=== PATIENT | female | born 1950 | race Caucasian/White ===

== ENCOUNTER 2018-01-06 09:45 | Emergency (ER) | payer OTHER, MEDICARE, SELFPAY ==
[2018-01-06 09:51] VITALS: BP 205/103; PULSE 73; RESP 18; TEMP 36.7; O2SAT 97; BMI 32.9
[2018-01-06 09:54] VITALS: BP 183/89; PULSE 72; RESP 18; O2SAT 97
[2018-01-06 09:56] VITALS: TEMP 36.7
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
--- NOTE | 2018-01-06 12:07 | NURSING ---
CALLING [facility] FOR TRANSFER.
--- NOTE | 2018-01-06 12:10 | NURSING ---
ER DOC TO ER DOC
[2018-01-06 12:14] VITALS: BP 138/77; PULSE 81; RESP 16; O2SAT 98
[2018-01-06] MEDS: Diphth,Pertuss(Acell),Tet Vac 0.5 ML Vial IM (12:25)
[2018-01-06 12:30] LABS: Absolute Lymphocyte Count 2.17 X10^3/ul (0.83-4.51); Absolute Neutrophil Count 11.2 X10^3/uL (2.0-7.7); Basophil# 0.02 X10^3/uL; Basophil% 0.1 % (0-1); Eosinophil# 0.04 X10^3/uL; Eosinophils% 0.3 % (0-5); Hematocrit 45.3 % (37-47); Hemoglobin 15.6 g/dl (12.0-15.0); Lymphocyte # 2.17 X10^3/ul (4.0); Lymphocyte % 15.2 % (19-41); Mean Corp Hgb Conc 34.4 g/gl (32-36); Mean Corpuscular Hgb 32.1 pg (27.0-32.0); Mean Corpuscular Volume 93.2 fL (81-99); Mean Platelet Vol. 9.1 fl (6.2-12.0); Monocyte# 0.79 X10^3/uL; Monocyte% 5.5 % (0-10); Neutrophil # 11.23 X10^3/uL (2.7-7.7); Neutrophil % 78.6 % (47-70); POSITIVE COUNT NO; POSITIVE DIFFERENTIAL NO; POSITIVE MORPHOLOGY NO; Platelet Count 277 K/mm3 (150-450); RBC Distribution Width CV 12.8 % (11.6-14.6); RBC Distribution Width SD 43.7 fl (35.1-43.9); Red Blood Count 4.86 M/mm3 (4.2-5.4); White Blood Count 14.3 K/mm3 (4.4-11.0)
[2018-01-06 12:32] LABS: Prothrombin Time (Protime)PT. 12.7 SECONDS (11.7-14.9)
[2018-01-06 12:33] LABS: Mucous, Urine 0 SEEN /hpf (<or=2+); White Blood Cells 0 SEEN /hpf (0-5)
[2018-01-06 12:38] LABS: Color, Urine Yellow (Yellow); Glucose, Dipstick Normal (Normal); Ketone-Dipstick Negative (Negative); Leukocyte Esterase-Dipstick 25 /ul (Negative); Nitrite-Dipstick Negative (Negative); Occult Blood-Urine 250 /ul (Negative); Protein-Dipstick Negative (Negative); Specific Gravity, Urine 1.005 (1.002-1.030); Urine Bilirubin Dipstick Negative (Negative); Urine Clarity Clear (Clear); Urine Urobilinogen Normal (Normal)
[2018-01-06 12:39] VITALS: BP 138/84; PULSE 80; RESP 17; TEMP 36.4; O2SAT 98
[2018-01-06 12:41] LABS: ALB/GLOB Ratio 1.1 RATIO (0.9-2.4); AST(SGOT) 28 U/L (15-37); Alanine Aminotransfer ALT/SGPT 38 U/L (13-56); Albumin, Serum 4.5 g/dL (3.2-5.0); Alkaline Phosphatase 92 U/L (45-117); Anion Gap 6 (5-15); BUN 15 mg/dL (7-18); Calcium,Total 9.5 mg/dL (8.5-10.1); Chloride 106 mmol/L (98-107); Creatinine, Serum 0.84 mg/dL (0.55-1.02); EST Glomerular Filtration Rate 72 mL/min (>60); Est Glom Filt Rate - Afr Amer 87 mL/min (>60); Glucose 111 mg/dL (74-106); Lipase 173 U/L (73-393); Potassium 4.1 mmol/L (3.5-5.1); Protein, Total 8.5 g/dL (6.4-8.2); Sodium Level 141 mmol/L (136-145)
[2018-01-06 12:45] LABS: Bacteria RARE /hpf (None Seen); Red Blood Cells-Urine 10-25 SEEN /hpf (0-5); Squamous Epithelial Cells - UA 0-5 SEEN /hpf (5-10)
[2018-01-06 13:09] VITALS: BP 139/77; PULSE 81; RESP 16; O2SAT 97
== END 2018-01-06 14:19 | disposition short-term general hospital (02) ==
PROVIDERS: Emergency Provider Emergency Medicine
DX: S06.350A Traumatic hemorrhage of left cerebrum without loss of consciousness, initial encounter (principal); S50.02XA Contusion of left elbow, initial encounter; S00.211A Abrasion of right eyelid and periocular area, initial encounter; S90.812A Abrasion, left foot, initial encounter; Z72.0 Tobacco use; V43.52XA Car driver injured in collision with other type car in traffic accident, initial encounter; Y93.I9 Activity, other involving external motion; Y92.410 Unspecified street and highway as the place of occurrence of the external cause; Y99.8 Other external cause status
CPT/HCPCS: 70450; 72040; 80053; 80320; 81001; 83690; 85025; 85610; 90715; 99285; J7030; J7040; A4216; G0480

== ENCOUNTER 2018-06-10 21:24 | Inpatient (IN) | payer MEDICARE, OTHER, SELFPAY ==
[2018-06-10 21:32] VITALS: BMI 32.4
[2018-06-10 22:01] VITALS: BP 191/103; PULSE 74; RESP 20; TEMP 36.6; O2SAT 100
[2018-06-10 22:07] VITALS: BMI 32.5
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
[2018-06-10] MEDS: Gabapentin 100 MG Capsule PO (23:51)
[2018-06-10] MEDS: Acetaminophen 325 MG Tablet 650 MG PO (23:51)
[2018-06-10] MEDS: 0.9% NaCl Peripheral Flush Adult/Peds IV (23:51)
[2018-06-10] MEDS: oxyCODONE 5 MG Tablet 10 MG PO (23:52)
[2018-06-10] MEDS: Ondansetron 4 MG/2 ML Vial IV (23:53)
[2018-06-10] MEDS: Ketorolac 30 MG/ML Syringe IV (23:53)
[2018-06-11] MEDS: HYDROmorphone 1 MG/ML Syringe IV (00:02)
[2018-06-11] MEDS: Labetalol 20 MG/4 ML Vial 10 MG IV (02:41)
[2018-06-11 02:42] VITALS: BP 178/86; PULSE 72; RESP 16; TEMP 36.6; O2SAT 92
--- NOTE | 2018-06-11 02:49 | NURSING ---
PT AWOKEN FOR VS. RATES PAIN 06/02. ASKED IF SHE FELT ANY BETTER AND PT STATES MY BODY IS MORE RELAXED BUT THE PAIN HASN'T CHANGED. PT FELL ASLEEP SHORTLY AFTER STATEMENT. NO PAIN MEDS GIVEN AT THIS TIME.
[2018-06-11 05:05] VITALS: BP 160/68; PULSE 71
[2018-06-11 06:45] VITALS: O2SAT 96
[2018-06-11] MEDS: Ketorolac 30 MG/ML Syringe IV (06:52)
[2018-06-11] MEDS: oxyCODONE 5 MG Tablet 10 MG PO ×2 (06:52→17:58)
[2018-06-11] MEDS: Acetaminophen 325 MG Tablet 650 MG PO ×3 (06:53→23:22)
[2018-06-11] MEDS: 0.9% NaCl Peripheral Flush Adult/Peds IV ×6 (06:53→23:24)
[2018-06-11 06:58] LABS: Absolute Lymphocyte Count 2.61 X10^3/ul (0.83-4.51); Absolute Neutrophil Count 4.5 X10^3/uL (2.0-7.7); Basophil# 0.02 X10^3/uL; Basophil% 0.3 % (0-1); Eosinophil# 0.05 X10^3/uL; Eosinophils% 0.6 % (0-5); Hematocrit 39.6 % (37-47); Hemoglobin 13.4 g/dl (12.0-15.0); Lymphocyte # 2.61 X10^3/ul (4.0); Lymphocyte % 33.4 % (19-41); Mean Corp Hgb Conc 33.8 g/gl (32-36); Mean Corpuscular Hgb 31.9 pg (27.0-32.0); Mean Corpuscular Volume 94.3 fL (81-99); Mean Platelet Vol. 8.9 fl (6.2-12.0); Monocyte# 0.59 X10^3/uL; Monocyte% 7.6 % (0-10); Neutrophil # 4.53 X10^3/uL (2.7-7.7); Platelet Count 251 K/mm3 (150-450); RBC Distribution Width CV 13.2 % (11.6-14.6); RBC Distribution Width SD 45.5 fl (35.1-43.9); White Blood Count 7.8 K/mm3 (4.4-11.0)
[2018-06-11 06:59] LABS: POSITIVE COUNT NO; POSITIVE DIFFERENTIAL NO; POSITIVE MORPHOLOGY NO
[2018-06-11 07:25] LABS: Anion Gap 6 (5-15); BUN 20 mg/dL (7-18); BUN/Creat Ratio 26.7 RATIO (10-20); Calcium,Total 8.9 mg/dL (8.5-10.1); Chloride 105 mmol/L (98-107); Creatinine, Serum 0.75 mg/dL (0.55-1.02); EST Glomerular Filtration Rate 82 mL/min (>60); Est Glom Filt Rate - Afr Amer 99 mL/min (>60); Estimated Creatinine Clearance 42.59 ml/min; Glucose 96 mg/dL (74-106); Potassium 3.6 mmol/L (3.5-5.1); Sodium Level 138 mmol/L (136-145)
--- NOTE | 2018-06-11 08:24 | CON.PCM_ITS ---
Reason for Consult Date of Consultation: 06/11/18 Reason for Consultation: Intractable low back and LLE pain History of Present Illness: The patient is a 68 year old F [who has been followed in our office over the last few months for LBP and LLE pain. She had anMRI on 05/18 which showed spinal stenosis at L4-5 secondary to a combination of disc bulge and grade 1 spondylolithesis. She was started on meds and sent to PT. Pain management appointment is scheduled for 06/25. She had PT on Thu. and noted a significant increase in her pain afterward. She presented]to [facility] ED last night with pain 10/10 and not relieved with narcotics. Denied numbness or loss of bowel/bladder control. Was admitted to [facility] last night for intractable pain. this morning she rates her pain at 6/10. Past Medical History Medical History: Medical History (Last Updated 06/11/18 @ 05:05 by Christopher Vincent MD) Traumatic brain injury S06.9X9A Allergies No Known Allergies Allergy (Verified 06/10/18 22:12) Home Medications: Ambulatory Orders Medication Instructions Recorded NK 01/06/18 Surgical History: - - Surgery on trigger finger of the third metacarpal. Psychiatric History: No pertinent psych hx Lives: Spouse/ Significant Other Smoking Status: Current every day smoker Tobacco Use: Cigarettes Alcohol: Occasional - *Family History Paternal History Items: Cancer - Lung cancer?father. Patient does not know her mother. Patient Problems: Active and Suspected Problems (Last Updated 06/11/18 @ 05:05 by Christopher Vincent MD) Intractable low back pain (Acute) Sciatic leg pain (Acute) - Physical Exam General: Alert, Oriented x3, No apparent distress - Upon entering the hospital room, the patient was sleeping soundly but easily arousable. HEENT: Atraumatic Oral: Moist Mucosa Neck: Supple - No nuchal rigidity Extremities: No clubbing, No cyanosis, No edema, Capillary Refill Less than 3 Seconds, No Calf Tenderness, Peripheral Pulses Normal Musculoskeletal: Tenderness - Left low back and hip region. Log roll negative. SLR mildly positive on the left. Neurological: Cranial nerves II-XII grossly intact - EHL slightly decreased on the left. DTRs 2/4 at bilateral patellae, 1/4 but symmetric at b/l Achiiles, Sensory exam intact to light touch and pain Psych/Mental Status: Alert and oriented to time, place, person, mood and affect Vital Signs Temp Pulse Resp BP Pulse Ox 98 F 71 16 160/68 H 96 06/11/18 02:42 06/11/18 05:05 06/11/18 02:42 06/11/18 05:05 06/11/18 06:45 Oxygen Delivery Method Room Air Weight: 177 lb 7.554 oz Body Mass Index (BMI) 32.4 Intake and Output for Last 24 Hours 06/09/18 06/10/18 06/11/18 23:59 23:59 23:59 Intake Total 900 / 900 Output Total 375 / 375 Balance 525 / 525 Laboratory Tests Past 24 Hrs 06/11/18 06/11/18 06:44 06:44 WBC 7.8 RBC 4.20 Hgb 13.4 Hct 39.6 MCV 94.3 MCH 31.9 MCHC 33.8 RDW 13.2 RDW Differential 45.5 H Plt Count 251 MPV 8.9 Immature Gran % (Auto) 0.100 Neut % (Auto) 58.0 Lymph % (Auto) 33.4 [place] % (Auto) 7.6 Eos % (Auto) 0.6 Baso % (Auto) 0.3 Absolute Neuts (auto) 4.5 Absolute Lymphs (auto) 2.61 Total Counted Not Reportable Sodium 138 Potassium 3.6 Chloride 105 Carbon Dioxide 27.0 Anion Gap 6 BUN 20 H Creatinine 0.75 Estim Creat Clear Calc 42.59 Est GFR (MDRD) Af Amer 99 Est GFR (MDRD) Non-Af 82 BUN/Creatinine Ratio 26.7 H Glucose 96 Calcium 8.9 Assessment/Plan All Active Problems (Last Updated 06/11/18 @ 05:05 by Christopher Vincent MD) Intractable low back pain (Acute) Sciatic leg pain (Acute) Intractable LBP and LLE pain secondary to spinal stenosis and neural foraminal stenosis. No signs of acute cauda equina syndrome or meningitis. Improving with current medication regimen. Would attempt PT this AM. If unable to tolerate, may need inpatient pain management consult. No surgical intervention warranted at this time. Thank you for this consult and the opportunity to participate in the care of this patient.
[2018-06-11] MEDS: amLODIPine 5 MG Tablet PO (08:44)
[2018-06-11] MEDS: Gabapentin 100 MG Capsule PO ×2 (08:44→09:28)
[2018-06-11 08:45] VITALS: BP 136/76; PULSE 82; RESP 18; TEMP 36.6; O2SAT 97
[2018-06-11] MEDS: Morphine 4 MG/ML Syringe IV ×3 (09:28→18:32)
--- NOTE | 2018-06-11 12:05 | CASEMGMT ---
RN STEVEN Face to Face with patient for initial transition planning/care coordination assessment. RN CM introduced self and role at [facility]. Patient lying in bed, alert and oriented. Patient willing to participate in assessment and is able to answer all questions appropriately. Care providers, pharmacy, and demographics verified. Patient wishes to discharge home, denies need for home health at this time. Patient states she has no further needs or concerns at this time. CM to follow for discharge planning needs that may arise. PCP: None, list provided Specialists: [facility] Preferred Pharmacy: [facility] Insurance: [facility]/O Living Will/HPOA: Yes Nicholas Samuel LNOK: Living Arrangements: Lives with in 1 story home. Patient is independent. Transportation: Self, , or friends DME/HHC: Has wheelchair. May need walker but states family can probably get her one. Disposition Plan: Patient to discharge home with family support and follow-up plans in place. Karla MANN, RN, CM
[2018-06-11] MEDS: Gabapentin 100 MG Capsule 200 MG PO (15:24)
--- NOTE | 2018-06-11 18:47 | PN_ITS ---
Patient Problems: Active and Suspected Problems (Last Updated 06/11/18 @ 05:05 by Christopher Vincent MD) Intractable low back pain (Acute) Sciatic leg pain (Acute) Subjective: Patient was seen and examined today, she continues to have pain down her left leg and left buttocks. I placed the patient on IV Decadron today and started he r on gabapentin. Patient was made a full admission today as she will likely remain in the hospital over the weekend and may need an epidural or nerve block on Thursday. - Physical Exam General: Alert, Oriented x3, Cooperative, No apparent distress, Well developed, Well nourished HEENT: Atraumatic, PERRLA, EOMI, Normocephalic Oral: Moist Mucosa Neck: Supple, Trachea Midline, Thyroid Normal Size and Texture Lungs: Clear to auscultation, Normal air movement, No rhonchi, No wheeze, No rales Cardiovascular: Regular rate, Regular Rhythm, Normal S1, Normal S2, No murmurs, No Ectopic Activity, PMI Normal, No rub noted, No Gallop Abdomen: Bowel Sounds Present, Soft, Non Tender, Non-Distended, No hernias noted Extremities: No clubbing, No cyanosis, No edema, Capillary Refill Less than 3 Seconds Skin: No rashes, No breakdown Neurological: Cranial nerves II-XII grossly intact, Neuro grossly intact, Muscle tone normal, Sensory exam intact to light touch and pain Psych/Mental Status: Normal Affect, Appropriate, Alert and oriented to time, place, person, mood and affect Vital Signs Temp Pulse Resp BP Pulse Ox 97.8 F 82 18 136/76 H 97 06/11/18 08:45 06/11/18 08:45 06/11/18 08:45 06/11/18 08:45 06/11/18 08:45 Oxygen Delivery Method Room Air Weight: 80.5 kg Body Mass Index (BMI) 32.4 Intake and Output for Last 24 Hours 06/09/18 06/10/18 06/11/18 23:59 23:59 23:59 Intake Total 1750 / 1750 Output Total 875 / 875 Balance 875 / 875 Laboratory Tests Past 24 Hrs 06/11/18 06/11/18 06:44 06:44 WBC 7.8 RBC 4.20 Hgb 13.4 Hct 39.6 MCV 94.3 MCH 31.9 MCHC 33.8 RDW 13.2 RDW Differential 45.5 H Plt Count 251 MPV 8.9 Immature Gran % (Auto) 0.100 Neut % (Auto) 58.0 Lymph % (Auto) 33.4 [place] % (Auto) 7.6 Eos % (Auto) 0.6 Baso % (Auto) 0.3 Absolute Neuts (auto) 4.5 Absolute Lymphs (auto) 2.61 Total Counted Not Reportable Sodium 138 Potassium 3.6 Chloride 105 Carbon Dioxide 27.0 Anion Gap 6 BUN 20 H Creatinine 0.75 Estim Creat Clear Calc 42.59 Est GFR (MDRD) Af Amer 99 Est GFR (MDRD) Non-Af 82 BUN/Creatinine Ratio 26.7 H Glucose 96 Calcium 8.9 Medical Necessity - Tobacco Use Smoking Status: Current every day smoker Tobacco Use: Cigarettes Assessment/Plan All Active Problems (Last Updated 06/11/18 @ 05:05 by Christopher Vincent MD) Intractable low back pain (Acute) Sciatic leg pain (Acute) #1 left sciatica with uncontrolled pain-again patient was placed on IV Decadron today and Neurontin, she will be seen by PT and OT, she was seen by orthopedic surgery who feels that no surgical intervention is warranted at this time. #2 degenerative disc disease of the lumbar spine with spinal stenosis at L4-L5 #3 grade 1 spondylolisthesis at L4-L5 Code Visit Inpatient E&M: 09974 Init Hosp L3
[2018-06-11 19:37] VITALS: BP 157/83; PULSE 94; RESP 18; TEMP 36.9; O2SAT 96
[2018-06-12] VITALS (7 sets, daily range): BP systolic 128–177; BP diastolic 65–96; PULSE 60–92; RESP 16–18; TEMP 36.4–36.9; O2SAT 94–98
[2018-06-12] MEDS: oxyCODONE 5 MG Tablet 10 MG PO ×2 (00:30→09:38)
[2018-06-12] MEDS: 0.9% NaCl Peripheral Flush Adult/Peds IV ×6 (01:31→18:15)
[2018-06-12] MEDS: Morphine 4 MG/ML Syringe IV ×3 (01:31→12:48)
[2018-06-12] MEDS: Ondansetron 4 MG/2 ML Vial IV (01:31)
[2018-06-12] MEDS: Acetaminophen 325 MG Tablet 650 MG PO ×4 (05:27→23:02)
[2018-06-12] MEDS: Magnesium Hydroxide 30 ML UDC PO (09:37)
[2018-06-12] MEDS: Enoxaparin 40 MG/0.4 ML Syringe SC (09:38)
[2018-06-12] MEDS: amLODIPine 5 MG Tablet PO (09:39)
[2018-06-12] MEDS: Gabapentin 100 MG Capsule 200 MG PO (09:39)
--- NOTE | 2018-06-12 09:55 | CASEMGMT ---
Social Work Note Referral Date: 06/12/18 Date of Assessment: 06/12/18 Informant: Self-Referral Reason for Consult: Intractable Back Pain Information obtained from: Medical record and pt. Pt presents with pleasant affect as evidenced by smiling and laughing throughout assessment. Living Arrangements: Pt reports to live with her spouse in a one-story ranch with 4 CHID[place]. Reports that she was using a wheelchair at home the last few days d/t pain and inability to ambulate. States she may need a walker and BSC at discharge. Reports that she does not have a DME company picked out and would like to check with her niece who works for a DME company before she commits to a particular agency. SAL HARRIS to check in on Thursday. Education: Graduated high school, able to read and write. Denies comprehension issues. Financial: Works [employer] and is self-employed. Denies financial insecurity. Social and/or Family Stressors: Denies family stressors, has family that lives locally and is supportive. Both sons live within 20 minutes and her daughter lives about 2.5 hrs away. Supports: Pt identifies her spouse and children as supports. She is very close with her daughter and identifies her and her spouse as her two primary supports. Mental Health: Pt denies mental health diagnoses. Substance Use: Tobacco, about 1 pack/week. Advanced Directives: Pt states she has them and her would be in charge. Educate to what advanced directives are at this time, and upon further evaluation the pt does not have them completed. She declines information at this time. ASSESSMENT: Pt is pleasant upon entry into room and participates in assessment. She intends on returning home at discharge and anticipates needing DME setup. SAL HARRIS to follow up on Thursday based on needs. She states she would consider HHC or SNF if recommended by therapy, but would like to return home at discharge. She has an appointment with Dr. Reed on 06/25 and reports to have transportation to get there. She does not have a primary care physician. Educate to importance and provide with a list of physicians. No further needs at this time, and pt made aware that RN STEVEN is available to assist with discharge planning. PLAN: Home with support of spouse. Will likely need DME setup. Suzie Valles, MANAGER GAME, PIG CASTING MACHINE OPERATOR
--- NOTE | 2018-06-12 11:53 | PN_ITS ---
Patient Problems: Active and Suspected Problems (Last Updated 06/11/18 @ 05:05 by Christopher Vincent MD) Intractable low back pain (Acute) Sciatic leg pain (Acute) Subjective: Patient seen and examined today, she still having severe left leg radicular pain and has trouble ambulating. I decided to increase her Neurontin today, I di scussed several options with the patient 1 of which was to receive an epidural or nerve block injection on Thursday. If patient's pain is not dramatically improved tomorrow, she will had to be scheduled for this and I will contact pain management. - Physical Exam General: Alert, Oriented x3, Cooperative, No apparent distress, Well developed, Well nourished HEENT: Atraumatic, PERRLA, EOMI, Normocephalic Oral: Moist Mucosa Neck: Supple, No Nuchal Rigidity, Trachea Midline, Thyroid Normal Size and Texture Lungs: Clear to auscultation, Normal air movement, No rhonchi, No wheeze Cardiovascular: Regular rate, Regular Rhythm, Normal S1, Normal S2, No murmurs, No Ectopic Activity Abdomen: Bowel Sounds Present, Soft, Non Tender, Non-Distended Extremities: No clubbing, No cyanosis, No edema, Capillary Refill Less than 3 Seconds Skin: No rashes, No breakdown Neurological: Cranial nerves II-XII grossly intact, Neuro grossly intact, Sen martha exam intact to light touch and pain Psych/Mental Status: Normal Affect, Appropriate, Alert and oriented to time, place, person, mood and affect Vital Signs Temp Pulse Resp BP Pulse Ox 97.9 F 92 18 177/96 H 94 06/12/18 05:22 06/12/18 09:34 06/12/18 09:34 06/12/18 09:34 06/12/18 07:19 Oxygen Delivery Method Room Air Weight: 80.5 kg Body Mass Index (BMI) 32.4 Intake and Output for Last 24 Hours 06/10/18 06/11/18 06/12/18 23:59 23:59 23:59 Intake Total 2049 / 2049 300 / 300 Output Total 875 / 875 Balance 1175 / 1175 300 / 300 Medical Necessity - Tobacco Use Smoking Status: Current every day smoker Tobacco Use: Cigarettes Assessment/Plan All Active Problems (Last Updated 06/11/18 @ 05:05 by Christopher Vincent MD) Intractable low back pain (Acute) Sciatic leg pain (Acute) #1 left sciatica with uncontrolled pain-10 you IV Decadron, Neurontin was increased today, PT and OT are seeing patient #2 degenerative disc disease of the lumbar spine with spinal stenosis at L4-L5 #3 grade 1 spondylolisthesis at L4-L5 Code Visit Inpatient E&M: 33181 Subs Hosp L2
[2018-06-12] MEDS: Gabapentin 300 MG Capsule PO (12:49)
[2018-06-12] MEDS: oxyCODONE 5 MG Tablet 15 MG PO ×2 (16:28→21:57)
[2018-06-12] MEDS: Gabapentin 400 MG Capsule PO (22:01)
[2018-06-12] MEDS: Ketorolac 30 MG/ML Syringe IV (23:02)
[2018-06-13] VITALS (7 sets, daily range): BP systolic 118–162; BP diastolic 68–99; PULSE 72–98; RESP 16–18; TEMP 36.6–36.7; O2SAT 93–98
[2018-06-13] MEDS: morphine 10 MG/ML Syringe 6 MG IV ×2 (00:49→20:32)
[2018-06-13] MEDS: oxyCODONE 5 MG Tablet 15 MG PO ×5 (02:16→21:23)
[2018-06-13] MEDS: Acetaminophen 325 MG Tablet 650 MG PO ×3 (05:10→17:58)
[2018-06-13] MEDS: Gabapentin 400 MG Capsule PO ×3 (05:11→21:23)
[2018-06-13] MEDS: Enoxaparin 40 MG/0.4 ML Syringe SC (08:58)
[2018-06-13] MEDS: amLODIPine 5 MG Tablet PO (08:58)
[2018-06-13] MEDS: 0.9% NaCl Peripheral Flush Adult/Peds IV ×2 (11:52→17:59)
[2018-06-13] MEDS: Magnesium Hydroxide 30 ML UDC PO (12:54)
--- NOTE | 2018-06-13 18:39 | PCM.PROGNOTE ---
Patient Problems: Active and Suspected Problems (Last Updated 06/11/18 @ 05:05 by Christopher Vincent MD) Intractable low back pain (Acute) Sciatic leg pain (Acute) Subjective: She was seen and examined today, she still continues to complain of severe left leg pain-this is despite being on IV Decadron for the last 2 days and receiving oral gabapentin, and narcotic pain medication. I discussed this with the patient, I told her that I would advise her to be seen by pain management and they may perform a nerve block and epidural tomorrow, I also told her that because of the increased pain in her leg since she had her last MRI, I would recommend repeating the MRI here. She understands this and agrees. - Physical Exam General: Alert, Oriented x3, Cooperative, Well developed HEENT: Atraumatic, PERRLA, EOMI, Normocephalic Oral: Moist Mucosa Neck: Supple, No Nuchal Rigidity, Trachea Midline, Thyroid Normal Size and Texture Lungs: Clear to auscultation, Normal air movement, No rhonchi, No wheeze, No rales Cardiovascular: Regular rate, Regular Rhythm, Normal S1, Normal S2, No murmurs, No Ectopic Activity Abdomen: Bowel Sounds Present, Soft, Non Tender, Non-Distended, No hernias noted Extremities: No edema, Capillary Refill Less than 3 Seconds Neurological: Cranial nerves II-XII grossly intact, Neuro grossly intact, Sensory exam intact to light touch and pain Psych/Mental Status: Normal Affect, Appropriate, Alert and oriented to time, place, person, mood and affect Vital Signs Temp Pulse Resp BP Pulse Ox 98.1 F 74 18 118/94 H 95 06/13/18 16:40 06/13/18 16:40 06/13/18 16:40 06/13/18 16:40 06/13/18 16:40 Oxygen Delivery Method Room Air Weight: 80.5 kg Body Mass Index (BMI) 32.4 Intake and Output for Last 24 Hours 06/11/18 06/12/18 06/13/18 23:59 23:59 23:59 Intake Total 2049 / 2049 800 / 800 500 / 500 Output Total 875 / 875 300 / 300 Balance 1175 / 1175 800 / 800 200 / 200 Medical Necessity - Tobacco Use Smoking Status: Current every day smoker Tobacco Use: Cigarettes Assessment/Plan All Active Problems (Last Updated 06/11/18 @ 05:05 by Christopher Vincent MD) Intractable low back pain (Acute) Sciatic leg pain (Acute) #1 left sciatica with uncontrolled pain-continue IV Decadron, Neurontin , narcotic pain medication, PT and OT are seeing patient. Patient will undergo another MRI tomorrow of her lumbar spine, she will also be seen by pain management, patient will be n.p.o. after midnight for possible epidural injection or nerve block tomorrow. #2 degenerative disc disease of the lumbar spine with spinal stenosis at L4-L5 #3 grade 1 spondylolisthesis at L4-L5 Code Visit Inpatient E&M: 55899 Subs Hosp L2
--- NOTE | 2018-06-13 18:55 | PCA ---
Dr. Escobar requesting this pathology secretary/transcriptionist request patient's recent MRI report from [facility]. Obtained signed release of medical records form, faxed to [phone] and [phone]. Left note for Thursday's pathology secretary/transcriptionist to follow up.
[2018-06-14] MEDS: morphine 10 MG/ML Syringe 6 MG IV ×2 (00:24→05:46)
[2018-06-14] MEDS: Acetaminophen 325 MG Tablet 650 MG PO ×5 (00:25→23:31)
[2018-06-14] MEDS: oxyCODONE 5 MG Tablet 15 MG PO ×5 (02:30→23:31)
[2018-06-14 02:31] VITALS: BP 147/76; PULSE 73; RESP 16; TEMP 36.6; O2SAT 95
[2018-06-14] MEDS: Gabapentin 400 MG Capsule PO ×3 (05:45→20:52)
--- NOTE | 2018-06-14 05:55 | MRI_ITS ---
STUDY: MRI LUMBAR SPINE WITHOUT CONTRAST REASON FOR EXAM: Female, 68 years old. Back pain and left leg pain. Burning. TECHNIQUE: Standardized fat and water weighted pulse sequences were obtained in the sagittal and axial planes. COMPARISON: None FINDINGS: T10-T11: (Sagittal only). Normal endplates. Mild disc space height narrowing. Tiny posterior bulging disc. Normal central canal and bilateral intervertebral neural foramina. T11-T12: (Sagittal only). Schmorl's nodes in the central aspects of the vertebral endplates. Normal disc height and morphology. Normal central canal and bilateral intervertebral neural foramina. T12-L1: (Sagittal only). Normal endplates. Normal disc height, hydration and morphology. Normal central canal and bilateral lateral recesses. Normal facet joints. Normal lumbar lordosis. There is no substantial scoliosis. Normal conus medullaris that terminates at the lower T12 vertebral body level. L1-2: Schmorl's nodes in the central aspect of the vertebral endplates. Normal disc height and morphology. Mild central canal stenosis with an AP canal diameter of 10 mm. Normal bilateral lateral recesses. Normal facet joints. Normal bilateral intervertebral neural foramina. L2-3: Normal L2 inferior endplate. Mild old compression fracture with a small lymph node of the upper L3 vertebral body. Increased disc space height due to old fracture of the upper L3 vertebral body. Small posterior bulging disc. Moderate central canal stenosis with an AP canal diameter of 7 mm. Normal bilateral lateral recesses. Normal facet joints. Normal bilateral intervertebral neural foramina. L3-4: Normal endplates. Normal disc height with small posterior bulging disc. Moderately pronounced central canal stenosis with an AP canal diameter of 6.4 mm. Normal bilateral lateral recesses. Normal facet joints. Normal bilateral intervertebral neural foramina. L4-5: Normal endplates. Normal disc height and morphology but there is left superior foraminal disc extrusion obliterating the left intervertebral neural foramen (series 2, image 4; series 3, image 4). Mild degenerative anterolisthesis of L4 on L5. Moderately pronounced central canal stenosis with an AP canal diameter of 5.4 mm. Moderate asymmetric degenerative facet arthropathy. Moderately pronounced stenosis of the bilateral lateral recesses. Normal right intervertebral neural foramen. L5-S1: Normal endplates. Normal disc height and morphology. Tapered narrowing the central canal. Mild degenerative facet arthropathy. Normal bilateral intervertebral neural foramina. Normal visualized sacral ala. Normal visualized paraspinous soft tissue structures. MRI/Spine Lumbar (Routine) IMPRESSION: 1. Moderately pronounced central canal stenosis at L4-L5 disc level with mild degenerative anterolisthesis of L4 on L5 and left superior foraminal disc extrusion obliterating the left intervertebral neural foramen (series 2, image 4; series 3, image 4). There are also moderately pronounced stenosis of the bilateral lateral recesses and moderate asymmetric degenerative facet arthropathy. 2. Moderately pronounced central canal stenosis at L3-L4 disc level. 3. Moderate central canal stenosis at L2-L3 disc level with small posterior bulging disc and old compression fracture of the upper L3 vertebral body. 4. Mild central canal stenosis at L1-L2 disc level. Electronically Signed: Yannick Miranda MD at 16:13 EDT , Service support ,
[2018-06-14 07:31] VITALS: O2SAT 95
[2018-06-14 09:15] VITALS: BP 161/91; PULSE 74; RESP 16; TEMP 36.6; O2SAT 96
[2018-06-14] MEDS: Enoxaparin 40 MG/0.4 ML Syringe SC (09:25)
[2018-06-14] MEDS: amLODIPine 5 MG Tablet PO (09:25)
[2018-06-14 15:00] VITALS: BP 166/86; PULSE 80; RESP 16; TEMP 36.7; O2SAT 96
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
[2018-06-14 20:38] VITALS: BP 154/67; PULSE 64; RESP 16; TEMP 36.6; O2SAT 96
[2018-06-14] MEDS: Ketorolac 30 MG/ML Syringe IV (20:47)
[2018-06-14] MEDS: 0.9% NaCl Peripheral Flush Adult/Peds IV (20:47)
[2018-06-15] VITALS (11 sets, daily range): BP systolic 116–160; BP diastolic 60–98; PULSE 64–95; RESP 16–18; TEMP 36.6–37.3; O2SAT 94–100; BMI 32.4
[2018-06-15] MEDS: 0.9% NaCl Peripheral Flush Adult/Peds IV (03:14)
[2018-06-15] MEDS: Ketorolac 30 MG/ML Syringe IV (03:14)
[2018-06-15] MEDS: Gabapentin 400 MG Capsule PO ×3 (05:28→21:08)
[2018-06-15] MEDS: oxyCODONE 5 MG Tablet 15 MG PO ×3 (05:28→18:26)
[2018-06-15] MEDS: Acetaminophen 325 MG Tablet 650 MG PO ×4 (05:28→23:26)
[2018-06-15 05:29] LABS: Hematocrit 39.9 % (37-47); Hemoglobin 13.4 g/dl (12.0-15.0); Mean Corp Hgb Conc 33.6 g/gl (32-36); Mean Corpuscular Volume 95.2 fL (81-99); Mean Platelet Vol. 8.9 fl (6.2-12.0); Platelet Count 268 K/mm3 (150-450); RBC Distribution Width CV 13.2 % (11.6-14.6); RBC Distribution Width SD 45.4 fl (35.1-43.9); Red Blood Count 4.19 M/mm3 (4.2-5.4); White Blood Count 11.3 K/mm3 (4.4-11.0)
[2018-06-15 05:31] LABS: Scan Indicated on CBC? Y/N NO
--- NOTE | 2018-06-15 06:00 | EKG12_ITS ---
Test Reason : AM EKG Blood Pressure : / mmHG Vent. Rate : 075 BPM Atrial Rate : 075 BPM P-R Int : 138 ms QRS Dur : 074 ms QT Int : 374 ms P-R-T Axes : 057 051 064 degrees QTc Int : 417 ms Normal sinus rhythm Normal ECG When compared with ECG of 20-OCT-2005 13:58, No significant change was found Confirmed by YONNY LOUISE ([id number]), senior technical editor WILFRED OLMEDO ([id number] on 06/22/2018 11:44:59 AM Referred By: KAMILA Confirmed By:YONNY LOUISE
[2018-06-15] MEDS: amLODIPine 5 MG Tablet PO (09:33)
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
--- NOTE | 2018-06-15 12:30 | RAD_ITS ---
STUDY: X-RAY - LUMBAR SPINE REASON FOR EXAM: Female, 68 years old. L4-5 lumbar epidural block TECHNIQUE: Fluoroscopic assistance was provided to Dr. Ruth. FLUOROSCOPY TIME: 9.0 seconds. One fluoroscopic spot View(s) of the lumbar spine is submitted. COMPARISON: None FINDINGS: The tip of the needle is noted near the midline at the L4-5 level. Contrast injection extends along the epidural space of the spinal canal from L1-2 to L5-S1. RAD/Spine 1 View Any Level IMPRESSION: Fluoroscopic guidance for L4-5 epidural block. Electronically Signed: Sarthak Quintana MD at 17:00 EDT , Service support ,
--- NOTE | 2018-06-15 12:34 | NURSING ---
report called to Caryn in [facility]. pt transported off unit by Janine to [facility].
[2018-06-15] MEDS: Triamcinolone Acetonide 40 MG/ML Vial (13:49)
[2018-06-15] MEDS: Heparin Injection (Vial) 5,000 UNIT/ML VIAL 5000 UNIT SC (23:26)
[2018-06-16] MEDS: oxyCODONE 5 MG Tablet 15 MG PO ×2 (02:54→10:22)
[2018-06-16 02:59] VITALS: BP 127/77; PULSE 70; RESP 18; TEMP 36.9; O2SAT 98
[2018-06-16] MEDS: Gabapentin 400 MG Capsule PO ×2 (05:58→14:17)
[2018-06-16] MEDS: morphine 10 MG/ML Syringe 6 MG IV (05:58)
[2018-06-16] MEDS: Heparin Injection (Vial) 5,000 UNIT/ML VIAL 5000 UNIT SC (05:59)
[2018-06-16] MEDS: Acetaminophen 325 MG Tablet 650 MG PO ×2 (05:59→12:09)
[2018-06-16 06:18] LABS: Absolute Neutrophil Count 8.3 X10^3/uL (2.0-7.7); Basophil# 0.01 X10^3/uL; Basophil% 0.1 % (0-1); Hematocrit 42.9 % (37-47); Hemoglobin 14.8 g/dl (12.0-15.0); Lymphocyte % 14.9 % (19-41); Mean Corp Hgb Conc 34.5 g/gl (32-36); Mean Corpuscular Hgb 32.4 pg (27.0-32.0); Mean Corpuscular Volume 93.9 fL (81-99); Monocyte# 0.69 X10^3/uL; Monocyte% 6.4 % (0-10); Neutrophil # 8.31 X10^3/uL (2.7-7.7); Neutrophil % 77.3 % (47-70); Platelet Count 353 K/mm3 (150-450); RBC Distribution Width CV 12.7 % (11.6-14.6); RBC Distribution Width SD 42.6 fl (35.1-43.9); Red Blood Count 4.57 M/mm3 (4.2-5.4); White Blood Count 10.8 K/mm3 (4.4-11.0)
[2018-06-16 06:20] LABS: POSITIVE COUNT NO; POSITIVE DIFFERENTIAL NO; POSITIVE MORPHOLOGY NO
[2018-06-16 06:38] LABS: Anion Gap 5 (5-15); BUN 20 mg/dL (7-18); BUN/Creat Ratio 28.9 RATIO (10-20); Calcium,Total 8.6 mg/dL (8.5-10.1); Chloride 104 mmol/L (98-107); Creatinine, Serum 0.69 mg/dL (0.55-1.02); EST Glomerular Filtration Rate 90 mL/min (>60); Est Glom Filt Rate - Afr Amer 108 mL/min (>60); Estimated Creatinine Clearance 42.59 ml/min; Glucose 141 mg/dL (74-106); Potassium 4.4 mmol/L (3.5-5.1); Sodium Level 137 mmol/L (136-145)
[2018-06-16 10:00] VITALS: BP 123/75; PULSE 70; RESP 18; TEMP 36.8; O2SAT 94
[2018-06-16] MEDS: amLODIPine 5 MG Tablet PO (10:07)
--- NOTE | 2018-06-16 12:52 | PCM.DC ---
- Discharge Diagnoses Current Active Problems: Current Active and Chronic Problems (Last Updated 06/11/18 @ 05:05 by Christopher Vincent MD) Intractable low back pain (Acute) Sciatic leg pain (Acute) You will use the following diet at home:: No restrictions Your food should be the consistency of: Regular Discharge Activity: Return to Normal Activity Weight Bearing Status: Weight bearing as tolerated Call your doctor if you observe: Uncontrolled pain Allergies/Adverse Reactions: Allergies No Known Allergies Allergy (Verified 06/10/18 22:12) Medications to take at Discharge NK 01/06/18 Primary Care Physician: Care Physician,No Primary [Primary Care Provider] - Test Results: Test results from this visit will be discussed in further detail at your follow-up appointment, if applicable. Please Follow Up With: Bimal Ruth MD When: 2-4 weeks
--- NOTE | 2018-06-16 13:05 | DCINST_ITS ---
- Discharge Diagnoses Current Active Problems: Current Active and Chronic Problems (Last Updated 06/11/18 @ 05:05 by Christopher Vincent MD) Intractable low back pain (Acute) Sciatic leg pain (Acute) You will use the following diet at home:: No restrictions Your food should be the consistency of: Regular Discharge Activity: Return to Normal Activity Weight Bearing Status: Weight bearing as tolerated Call your doctor if you observe: Uncontrolled pain Allergies/Adverse Reactions: Allergies No Known Allergies Allergy (Verified 06/10/18 22:12) Medications to take at Discharge NK 01/06/18 Primary Care Physician: Care Physician,No Primary [Primary Care Provider] - Test Results: Test results from this visit will be discussed in further detail at your follow- up appointment, if applicable. Please Follow Up With: Bimal Ruth MD When: 2-4 weeks
--- NOTE | 2018-06-16 13:05 | PCM.DC.SUM ---
Discharge Date and Diagnosis - Problem List Patient Problems: Active and Suspected Problems (Last Updated 06/11/18 @ 05:05 by Christopher Vincent MD) Intractable low back pain (Acute) Sciatic leg pain (Acute) Date of Admission: 06/10/18 Date of Discharge: 06/16/18 - Primary Discharge Diagnosis Active and Suspected Problems (Last Updated 06/11/18 @ 05:05 by Christopher Vincent MD) Intractable low back pain (Acute) Sciatic leg pain (Acute) Hospital Course and Treatment Summary of Care Provided: Patient is a 68-year-old female with history of chronic back pain who was admitted for acute on chronic intractable back pain with difficulty with ambulation. Denies any bowel or bladder dysfunction. MRI of the lumbar spine was done with results as below. Patient has been started on conservative treatment with steroids, IV pain medications and has not had any improvement. Patient was not able to ambulate for several days despite conservative management. She was then seen in consultation by pain management and subsequently underwent an epidural block and tolerated the procedure well. Patient was able to ambulate following her epidural and pain was adequately controlled with oral medications. Patient was otherwise doing well and was stable and ready for discharge and had met maximal hospital benefit. She will continue outpatient PT/OT and will be discharged home with a walker. Patient will follow up with pain management in 2-4 weeks. MRI lumbar spine 06/14/18 1. Moderately pronounced central canal stenosis at L4-L5 disc level with mild degenerative anterolisthesis of L4 on L5 and left superior foraminal disc extrusion obliterating the left intervertebral neural foramen (series 2, image 4; series 3, image 4). There are also moderately pronounced stenosis of the bilateral lateral recesses and moderate asymmetric degenerative facet arthropathy. 2. Moderately pronounced central canal stenosis at L3-L4 disc level. 3. Moderate central canal stenosis at L2-L3 disc level with small posterior bulging disc and old compression fracture of the upper L3 vertebral body. 4. Mild central canal stenosis at L1-L2 disc level. Patient Problems: Active and Suspected Problems (Last Updated 06/11/18 @ 05:05 by Christopher Vincent MD) Intractable low back pain (Acute) Sciatic leg pain (Acute) Subjective: Patient doing well, states that she has been able to ambulate approximately 30 feet with assistance. Currently sitting up in the bed. Does admit to constipation but otherwise without any complaints. - Physical Exam General: Alert, Oriented x3, Cooperative HEENT: Atraumatic, Normocephalic Neck: Supple Lungs: Clear to auscultation, Normal air movement Cardiovascular: Regular rate, No murmurs Abdomen: Bowel Sounds Present, Soft, Non Tender Extremities: No edema, Capillary Refill Less than 3 Seconds Skin: No rashes, No breakdown Musculoskeletal: No Tenderness to Palpation of Joints or Extremities Neurological: Cranial nerves II-XII grossly intact Psych/Mental Status: Normal Affect, Appropriate Vital Signs Temp Pulse Resp BP Pulse Ox 98.2 F 70 18 123/75 H 94 06/16/18 10:00 06/16/18 10:00 06/16/18 10:00 06/16/18 10:00 06/16/18 10:00 Oxygen Delivery Method Room Air Weight: 80.5 kg Body Mass Index (BMI) 32.4 Intake and Output for Last 24 Hours 06/14/18 06/15/18 06/16/18 23:59 23:59 23:59 Intake Total 2310 / 2310 1640 / 1640 720 / 720 Balance 2310 / 2310 1640 / 1640 720 / 720 Laboratory Tests Past 24 Hrs 06/16/18 06/16/18 06:02 06:02 WBC 10.8 RBC 4.57 Hgb 14.8 Hct 42.9 MCV 93.9 MCH 32.4 H MCHC 34.5 RDW 12.7 RDW Differential 42.6 Plt Count 353 MPV 9.0 Immature Gran % (Auto) 1.300 H Neut % (Auto) 77.3 H Lymph % (Auto) 14.9 L [place] % (Auto) 6.4 Eos % (Auto) 0.0 Baso % (Auto) 0.1 Absolute Neuts (auto) 8.3 H Absolute Lymphs (auto) 1.60 Total Counted Not Reportable Sodium 137 Potassium 4.4 Chloride 104 Carbon Dioxide 28.0 Anion Gap 5 BUN 20 H Creatinine 0.69 Estim Creat Clear Calc 42.59 Est GFR (MDRD) Af Amer 108 Est GFR (MDRD) Non-Af 90 BUN/Creatinine Ratio 28.9 H Glucose 141 H Calcium 8.6 Discharge Diet: No Restrictions Discharge Activity: Return to Normal Activity Weight Bearing Status: Weight bearing as tolerated Call your doctor if you observe: Uncontrolled pain Home Medications: Medications to take at Discharge Hydrocodone/Acetaminophen [[place] 5-325 Tablet] 1 each PO Q6H 6 Days #20 tablet 06/16/18 Polyethylene Glycol 3350 [Miralax] 17 gm PO DAILY PRN 10 Days #10 packet 06/16/18 Following Prescrptions Were Given to Patient: Polyethylene Glycol 3350 [Miralax] 17 gm PO DAILY PRN 10 Days #10 packet PRN Reason: Constipation Hydrocodone/Acetaminophen [[place] 5-325 Tablet] 1 each PO Q6H 6 Days #20 tablet Other Amb Orders: Occupational Therapy Eval Location: None Selected Physical Therapy Evaluation Location: None Selected Primary Care Physician: Care Physician,No Primary [Primary Care Provider] - Please Follow Up With: Bimal Ruth MD When: 2-4 weeks Disposition: Home Patient Condition:: Good Medical Necessity - Tobacco Use Smoking Status: Current every day smoker Tobacco Use: Cigarettes Meaningful Use Info Meaningful Use Diagnoses (Choose all that apply): None applicable Code Visit Inpatient E&M: 88292 Disch Hosp
--- NOTE | 2018-06-16 14:12 | CASEMGMT ---
SAL HARRIS followed up with patient regarding discharge needs. Patient states that she would like a walker and was agreeable to [facility]. SAL HARRIS obtained script from hospitalist and sent referral to [facility] and arranged for walker to be delivered to hospital. Patient denied need for HHC and will resume her outpatient therapy at [facility].
[2018-06-16 14:15] VITALS: BP 133/85; PULSE 88; RESP 14; TEMP 36.9; O2SAT 93
[2018-06-16] MEDS: Polyethylene Glycol 3350 17 GM PACKET PO (14:17)
== END 2018-06-16 15:58 | disposition home or self-care (01) | DRG 552 ==
PROVIDERS: Anesthesiology; Anesthesiology Pain Medicine; Admitting Provider Hospitalist; Visit Provider Family Medicine
PROC: 3E0S3BZ Introduction of Anesthetic Agent into Epidural Space, Percutaneous Approach (ICD-10-PCS; CPT 62322; principal; 2018-06-15 13:25)
DX: M54.32 Sciatica, left side (principal); M48.061 Spinal stenosis, lumbar region without neurogenic claudication; M51.36 Other intervertebral disc degeneration, lumbar region; F17.210 Nicotine dependence, cigarettes, uncomplicated; S06.309S Unspecified focal traumatic brain injury with loss of consciousness of unspecified duration, sequela; V89.2XXS Person injured in unspecified motor-vehicle accident, traffic, sequela
CPT/HCPCS: 36415; 64483; 72020; 72148; 80048; 85025; 85027; 93005; 97162; 97165; 97530; 97535; 99406; J7120; A4216; J2405

== ENCOUNTER 2018-06-17 15:45 | Emergency (ER) | payer MEDICARE, OTHER, SELFPAY ==
[2018-06-17 15:47] VITALS: BP 160/93; PULSE 90; RESP 17; TEMP 37.1; O2SAT 100; BMI 31.3
--- NOTE | 2018-06-17 18:49 | ED.DEP ---
ED Disposition - Plan for ED Patient: Chief Complaint: Constipation Instructions: ED Constipation Referrals: Care Physician,No Primary [Primary Care Provider] -
--- NOTE | 2018-06-17 18:51 | ED.VISSUMM ---
- ER Visit Summary Date of Service: 06/17/18 Chief Complaint: Constipation History of Present Illness: The patient is a 68 F presenting with constipation. Patient states she has not had a bowel movement since June 09. She was in the hospital for a week. She says she had a nerve block on Thursday per Dr. Ruth. She has been taking mag citrate at home with no relief. She was discharged in the hospital yesterday. She is no longer taking narcotics. Physical Examination: Vitals are stable. Patient is afebrile. Alert no acute distress. HEENT exam is unremarkable. Neck is supple. Lungs are clear and equal bilaterally. Heart is regular rate and rhythm. Abdomen is soft mild diffuse tenderness with no rebound or guarding Rectal: soft stool, external nonthrombosed hemorrhoids Extremities are unremarkable. Skin is warm and dry. Remainder of exam is unremarkable. Emergency Department Course and Treatment: Attempted disimpaction. Small amount of stool was removed. She was given a soapsuds enema. She was able to have a large bowel movement in the ED. She is feeling much improved. She is advised to take stool softeners. Advised to follow-up with primary care physician. Advised return ED if worsening complaints. Disposition: Discharge home Impression: Constipation This note was generated with [employer] dictation software. It may contain incorrect words, spelling, and punctuation that were not noted in review of the chart prior to signing ED Disposition - Plan for ED Patient: Disposition: Home or Assisted Living Chief Complaint: Constipation Instructions: ED Constipation Referrals: Care Physician,No Primary [Primary Care Provider] -
[2018-06-17 19:11] VITALS: BP 147/87; PULSE 82; RESP 18; O2SAT 91
== END 2018-06-17 19:11 | disposition home or self-care (01) ==
PROVIDERS: Emergency Provider Emergency Medicine
DX: K59.00 Constipation, unspecified (principal)
CPT/HCPCS: 99283